=== PATIENT | female | born 1980 | race Hispanic/Latino ===

== ENCOUNTER → 2020-01-05 | Outpatient (CLI) | payer BC, MEDICAID | END | disposition home or self-care (01) | LOC: RAH 11:34 | PROVIDERS: ATTEND Obstetrics & Gynecology | DX: O20.0 Threatened abortion (principal); D25.9 Leiomyoma of uterus, unspecified | CPT/HCPCS: 76801; 76817 ==

== ENCOUNTER 2020-01-25 11:00 | Observation (INO) | payer BC, MEDICAID ==
[~2020-01-25] VITALS: Ht 154.9 cm; Wt 87.5 kg
[2020-01-25 12:03] LABS: BASOPHILS % (AUTO) 0.5 % (0.0-5.0); EOSINOPHILS % (AUTO) 2.8 % (0.0-8.0); HEMATOCRIT 33.2 % (36-48); LYMPHOCYTES % (AUTO) 34.3 % (21.0-51.0); MEAN CORPUSCULAR HEMOGLOBIN 22.9 pg (27.0-33.0); MEAN CORPUSCULAR HGB CONC 30.1 g/dL (32.0-36.0); MONOCYTES % (AUTO) 6.1 % (3.0-13.0); NEUTROPHILS % (AUTO) 55.9 % (40.0-77.0); PLATELET COUNT (AUTO) 455 K/uL (130-400); RED BLOOD CELL COUNT(AUTO) 4.37 MIL/uL (4.00-5.50); RED CELL DISTRIBUTION WIDTH 15.9 % (11.0-15.5); WHITE BLOOD COUNT (AUTO) 7.4 K/uL (4.8-10.8)
--- NOTE | 2020-01-31 14:02 | NUR ---
Called doctor Marques office to report plt of [phone], okay to proceed no new orders.
[2020-02-01] VITALS (23 sets, daily range): BP systolic 135–180; BP diastolic 60–97
[2020-02-01] MEDS ORDERED: SUCCINYLCHOLINE CHLORIDE 20 MG/ML 10 ML VIAL ONE (06:49)
[2020-02-01] MEDS ORDERED: DEXAMETHASONE SOD PHOSPHATE 10MG/ML 1ML VIAL ONE (06:49)
[2020-02-01] MEDS ORDERED: LIDOCAINE PF 2% 5ML ABBOJECT ONE (06:49)
[2020-02-01] MEDS ORDERED: ONDANSETRON HCL 4 MG/2 ML VIAL ONE (06:51)
[2020-02-01] MEDS ORDERED: MIDAZOLAM HCL 1 MG/ML 2ML VIAL ONE (06:51)
[2020-02-01] MEDS ORDERED: GLYCOPYRROLATE 1 MG/5 ML SYRINGE ONE (06:51)
[2020-02-01] MEDS ORDERED: ROCURONIUM 10MG/1ML SYR 10 MG/ML ML ONE ×2 (06:52→09:51)
[2020-02-01] MEDS ORDERED: PROPOFOL 10 MG/ML 20ML VIAL IV ONE (06:52)
[2020-02-01] MEDS ORDERED: NEOSTIGMINE 5MG/5ML SYR IV ONE (06:52)
[2020-02-01] MEDS ORDERED: FENTANYL CITRATE PF 50 MCG/1 ML 2ML VIAL ONE ×4 (06:52→10:54)
[2020-02-01] MEDS ORDERED: SODIUM CHLORIDE 0.9% 10 ML VIAL IVP SCH (07:00)
[2020-02-01] MEDS: CEFAZOLIN SODIUM 1 GM VIAL IVP SCH ×2 (07:00→09:15)
[2020-02-01] MEDS ORDERED: BISACODYL 10 MG SUPP.RECT RC PRN (07:00)
[2020-02-01] MEDS ORDERED: ONDANSETRON HCL 4 MG/2 ML VIAL IVP PRN (07:00)
[2020-02-01] MEDS ORDERED: LACTATED RINGERS 1000ML 1,000 ML IV SCH (07:00)
[2020-02-01] MEDS: DOCUSATE SODIUM 100 MG CAP PO SCH ×2 (09:00→20:14)
[2020-02-01] MEDS: SIMETHICONE 80 MG TAB.CHEW CHEW SCH ×4 (09:00→20:14)
[2020-02-01] MEDS ORDERED: MEPERIDINE-PF 25 MG/ML SYG ONE (10:53)
[2020-02-01] MEDS: IBUPROFEN 800 MG TAB PO PRN ×2 (16:02→22:30)
--- NOTE | 2020-02-01 16:35 | NUR ---
DR. GONZALES NOTIFIED OF ELEVATED B/P'S. NEW ORDERS RECEIVED TO CONSULT HOSPITALIST
--- NOTE | 2020-02-01 16:50 | NUR ---
HOSPITALIST ANSWERING SERVICE NOTIFIED OF CONSULT.
[2020-02-01] MEDS: DEXTROSE 5 %-0.45 % NACL 1,000 ML IV SCH (19:02)
[2020-02-01] MEDS: ACETAMINOPHEN-CODEINE 300/30MG TAB PO PRN ×2 (20:15→23:43)
[2020-02-02 03:55] VITALS: BP 137/58
[2020-02-02] MEDS: DEXTROSE 5 %-0.45 % NACL 1,000 ML IV SCH (04:00)
[2020-02-02] MEDS: ACETAMINOPHEN-CODEINE 300/30MG TAB PO PRN ×3 (04:16→14:03)
[2020-02-02 06:43] LABS: HEMATOCRIT 30.3 % (36-48); MEAN CORPUSCULAR HEMOGLOBIN 22.6 pg (27.0-33.0); MEAN CORPUSCULAR HGB CONC 30.4 g/dL (32.0-36.0); MEAN CORPUSCULAR VOLUME 74.4 fL (79-99); PLATELET COUNT (AUTO) 344 K/uL (130-400); RED BLOOD CELL COUNT(AUTO) 4.07 MIL/uL (4.00-5.50); RED CELL DISTRIBUTION WIDTH 15.9 % (11.0-15.5); WHITE BLOOD COUNT (AUTO) 11.7 K/uL (4.8-10.8)
[2020-02-02 07:32] VITALS: BP 135/83
[2020-02-02] MEDS: SIMETHICONE 80 MG TAB.CHEW CHEW SCH ×2 (07:41→13:59)
[2020-02-02] MEDS: DOCUSATE SODIUM 100 MG CAP PO SCH (07:41)
--- NOTE | 2020-02-02 08:20 | NUR ---
DR. GONZALES AT BEDSIDE TO ASSESS AND TALK TO PT. DR. GONZALES MADE AWARE OF B/P'S IMPROVING THROUGHOUT THE NIGHT AND ORDERS RECEIVED FOR DISCHARGE AT NOON TIME. STATED IF B/P'S REMAIN STABLE AND IF HOSPITALIST HAS NOT ROUNDED BY THEN, PT MAY STILL BE DISCHARGED AND PT IS TO FOLLOW UP WITH PCP TO MAINTAIN B/P'S.
[2020-02-02 11:20] VITALS: BP 150/87
[2020-02-02] MEDS ORDERED: LISINOPRIL 10 MG TABLET PO SCH (13:30)
[2020-02-02] MEDS ORDERED: HYDROCHLOROTHIAZIDE 25 MG TABLET PO SCH (13:30)
--- NOTE | 2020-02-02 13:30 | NUR ---
[employer]ELOP[employer] ENGINEER WITH HOSPITALIST GROUP AT BEDSIDE TO ASSESS PT AND DISCUSS POC. NEW ORDERS RECEIVED.
[2020-02-02 15:25] VITALS: BP 123/73
--- NOTE | 2020-02-02 15:25 | NUR ---
PT HAD NO REACTIONS TO B/P MEDICATION AND B/P WAS IMPROVED. SEE V/S ASSESSMENT
--- NOTE | 2020-02-02 16:25 | NUR ---
DISCHARGE PT LEFT UNIT VIA WHEELCHAIR, ACCOMPANIED BY SIGNIFICANT OTHER. DENIED PAIN AND HAD NO COMPLAINTS. TRANSPORTED BY PERSONAL VEHICLE.
== END 2020-02-02 16:25 | disposition home or self-care (01) ==
LOC: DAHIP 02-01 05:30 → EDSTATUS 02-01 11:00 → WSH 02-01 12:45
PROVIDERS: ADMIT Obstetrics & Gynecology; ATTEND Obstetrics & Gynecology
DX: N92.1 Excessive and frequent menstruation with irregular cycle (principal); Z20.828 Contact with and (suspected) exposure to other viral communicable diseases; K46.9 Unspecified abdominal hernia without obstruction or gangrene; N73.6 Female pelvic peritoneal adhesions (postinfective); I10 Essential (primary) hypertension; D64.9 Anemia, unspecified
CPT/HCPCS: 36415 ×3; 58552; 84703; 85025; 85027; 86850 ×2; 86900 ×2; 86901 ×2; 96360; 96361 ×2; A4215 ×2; A4221; A4222; A4223; A4344; A4510; A4649 ×3; A4663; A4930; A6260; C1769 ×2; G0378 ×21; J0330; J0690; J1100; J2001; J2175; J2250; J2405; J2704; J2710; J3010 ×4; J3490; J7030; J7120; U0003

== ENCOUNTER → 2020-03-06 | Outpatient (CLI) | payer BC, MEDICAID | END | disposition home or self-care (01) | LOC: RAH 11:14 | PROVIDERS: ATTEND Obstetrics & Gynecology | DX: Z12.31 Encounter for screening mammogram for malignant neoplasm of breast (principal) | CPT/HCPCS: 77067 ==

== ENCOUNTER 2020-03-12 10:35 | Emergency (ER) | payer BC, MEDICAID ==
[2020-03-12] MEDS ORDERED: DiphenhydrAMINE HCL 50 MG/ML VIAL ONE (10:58)
[2020-03-12] MEDS ORDERED: METHYLPREDNISOLONE SOD SUCC 125MG/2ML VIAL ONE (10:58)
[2020-03-12] MEDS ORDERED: FAMOTIDINE 20MG TAB 20 MG TAB ONE (10:58)
== END 2020-03-12 11:44 | disposition home or self-care (01) ==
LOC: EDH 10:35
DX: L50.0 Allergic urticaria (principal); I10 Essential (primary) hypertension; Z90.710 Acquired absence of both cervix and uterus
CPT/HCPCS: 96372 ×2; 99284; J1200; J2930